=== PATIENT | male | born 1975 | race Caucasian/White ===

== ENCOUNTER 2017-03-02 15:08 | Emergency (ER) | payer OTHER ==
[~2017-03-02] VITALS: Ht 172.7 cm; Wt 98.5 kg
[2017-03-02 15:13] VITALS: Ht 172.7 cm; Wt 98.5 kg
[2017-03-02] MEDS ORDERED: SOD CHLORIDE 0.9% 1,000 ML IV STA (15:52)
[2017-03-02] MEDS ORDERED: METF1000 PO (16:01)
[2017-03-02] MEDS ORDERED: GLIM2TAB PO ×2 (16:02→17:10)
[2017-03-02 16:22] LABS: BASOPHILS % 0.2 % (0.0-2.0); EOSINOPHILS # 0.2 10^3/ul (0.0-0.5); EOSINOPHILS % 1.9 % (0.0-7.0); HEMATOCRIT 43.7 % (42.0-52.0); HEMOGLOBIN 15.1 g/dl (14.0-18.0); LYMPHOCYTES # 2.3 10^3/ul (0.8-2.9); LYMPHOCYTES % 28.2 % (15.0-51.0); MEAN CORPUSCULAR HEMOGLOBIN 29.4 pg (29.0-33.0); MEAN CORPUSCULAR HGB CONC 34.6 g/dl (32.0-37.0); MEAN CORPUSCULAR VOLUME 85.2 fl (82.0-101.0); MEAN PLATELET VOLUME 10.6 fl (7.4-10.4); MONOCYTE # 0.7 10^3/ul (0.3-0.9); MONOCYTES % 8.5 % (0.0-11.0); NEUTROPHILS % 60.8 % (39.0-77.0); PLATELET COUNT 285 10^3/UL (140-415); RED BLOOD COUNT 5.13 10^6/ul (4.70-6.10); RED CELL DISTRIBUTION WIDTH 11.9 % (11.5-14.5); WHITE BLOOD COUNT 8.3 10^3/ul (4.8-10.8)
--- NOTE | 2017-03-02 16:37 | ERD ---
ER Documentation Chief Complaint Date/Time DATE: 03/02/17 TIME: 16:34 Chief Complaint OUT OF DIABETES MEDS. FEELING WEAK X 1 WEEK. BG 323 HPI 41-year-old man history of diabetes mellitus ran out of his medications, he has not been using them for about a month and states he feels weak for the last 3-4 days. He denies chest pain or chest pressure, no fevers or chills, no weight loss, no vomiting or diarrhea ROS All systems reviewed and are negative except as per history of present illness. Medications Home Meds Active Scripts Glimepiride* (Glimepiride*) 2 Mg Tablet, 2 MG PO WITH BREAKFAST, #30 TAB Prov:UZMA CORBIN MD 03/02/17 Metformin* (Glucophage*) 500 Mg Tab, 500 MG PO BID, #60 TAB Prov:UZMA CORBIN MD 03/02/17 Reported Medications Glimepiride* (Glimepiride*) 2 Mg Tablet, 3 MG PO WITH BREAKFAST, TAB PT GETS MEDS IN [place] 03/02/17 Metformin Hcl* (Metformin Hcl*) 1,000 Mg Tablet, 1000 MG PO WITH BREAKFAST DINNE , #30 TAB PT TAKES SIOFOR IN [place] 03/02/17 Allergies Allergies: Coded Allergies: No Known Allergy (Unverified , 03/02/17) PMhx/Soc Diabetes mellitus FmHx Family History: No diabetes Physical Exam Vitals Vital Signs Date Time Temp Pulse Resp B/P Pulse Ox O2 Delivery O2 Flow Rate FiO2 03/02/17 17:20 77 18 118/89 100 Room Air 03/02/17 15:13 98.8 86 20 127/82 98 Physical Exam GENERAL: Well-developed, well-nourished, well-hydrated, in no apparent distress , looks nontoxic in appearance HEENT: Moist mucous membranes, pink conjunctiva, no cervical spine tenderness or step-off deformities, no goiter, no jaundice or icterus, extraocular movements intact without pain. No submandibular induration, and no pharyngeal erythema NEURO: Alert and oriented 3, cranial nerves II through XII intact bilaterally, pupils equal round reactive to light, no focal deficits or facial asymmetry, sensation intact distally Strength 5/5 in upper and lower extremities bilaterally CARDIAC: Regular rate and rhythm, no murmurs rubs or gallops LUNGS: Clear bilaterally no wheezing crackles or stridor ABDOMEN: Soft nontender, no guarding, no rigidity, no rebound, no psoas sign no obturator sign. Normoactive bowel sounds SKIN: Warm and dry to touch, no abrasions, contusions, or hematomas, no lacerations, no ecchymosis, no target lesions, and without ulcers EXTREMITIES: No clubbing cyanosis or edema, calves are bilaterally symmetrical, no Homans sign, no popliteal cord sign. Distal pulses equal and bilateral PSYCH: Normal affect without agitation or irritability Result Diagram: 03/02/17 1600 03/02/17 1600 Results 24 hrs Laboratory Tests Test 03/02/17 15:14 03/02/17 16:00 Bedside Glucose 323mg/dL White Blood Count 8.310^3/ul Red Blood Count 5.1310^6/ul Hemoglobin 15.1g/dl Hematocrit 43.7% Mean Corpuscular Volume 85.2fl Mean Corpuscular Hemoglobin 29.4pg Mean Corpuscular Hemoglobin Concent 34.6g/dl Red Cell Distribution Width 11.9% Platelet Count 47419^3/UL Mean Platelet Volume 10.6fl Neutrophils % 60.8% Lymphocytes % 28.2% Monocytes % 8.5% Eosinophils % 1.9% Basophils % 0.2% Nucleated Red Blood Cells % 0.0/100WBC Neutrophils # (Manual) 5.010^3/ul Lymphocytes # 2.310^3/ul Monocytes # 0.710^3/ul Eosinophils # 0.210^3/ul Basophils # 0.010^3/ul Nucleated Red Blood Cells # 0.010^3/ul Sodium Level 138mmol/L Potassium Level 4.3mmol/L Chloride Level 101mmol/L Carbon Dioxide Level 26mmol/L Anion Gap 15 Blood Urea Nitrogen 16mg/dl Creatinine 1.02mg/dl Glucose Level 323mg/dl Calcium Level 9.2mg/dl Total Bilirubin 0.1mg/dl Direct Bilirubin 0.00mg/dl Indirect Bilirubin 0.1mg/dl Aspartate Amino Transf (AST/SGOT) 16IU/L Alanine Aminotransferase (ALT/SGPT) 29IU/L Alkaline Phosphatase 82IU/L Troponin I < 0.012ng/ml Total Protein 7.3g/dl Albumin 4.2g/dl Globulin 3.10g/dl Albumin/Globulin Ratio 1.35 Lipase 129U/L Current Medications Medications (Trade) Dose Ordered Sig/Xiomara Route PRN Reason Start Time Stop Time Status Last Admin Dose Admin Sodium Chloride (NS) 1,000 ml @ 1,000 mls/hr Q1H STAT IV 03/02/17 15:52 03/02/17 16:51 DC 03/02/17 16:38 Procedures/MDM IV line was established patient was placed on cardiac tech rhythm strip revealed a sinus rhythm at about 80 bpm with upright P and T waves. Patient was afebrile. EKG performed, read by me revealed a normal sinus rhythm 78 bpm, normal axis, narrow QRS complex, no concerning ST elevations or depressions noted. CBC and electrolytes were unremarkable, blood sugar elevated, liver function tests normal, troponin negative. I administered 1 L normal saline intravenously, blood sugar fell. Differential diagnoses considered, included but not limited to acute coronary syndrome, pulmonary embolism, aortic dissection, abdominal aortic aneurysm, sepsis, stroke, meningitis, encephalitis, pneumonia, appendicitis, cholecystitis , bowel obstruction, pyelonephritis, nephrolithiasis, cystitis, as well as metabolic, hematologic, and electrolyte abnormalities. As well as abscess, cellulitis, fractures, and dislocations. Patient feels much better at this time, and vital signs are normal, symptoms have improved. I did give strict instructions to return to the ED if symptoms continue or worsen, patient will otherwise follow-up with primary care physician. Patient understood instructions and agreed to plan. Disclaimer: Inadvertent spelling and grammatical errors are likely due to EHR/ dictation software use and do not reflect on the overall quality of patient care. Also, please note that the electronic time recorded on this note does not necessarily reflect the actual time of the patient encounter. Departure Diagnosis: Primary Impression: Acute weakness Additional Impression: Hyperglycemia Condition: Good UZMA CORBIN MD Mar 02, 2017 16:37
[2017-03-02 16:45] LABS: ALANINE AMINOTRANSFERASE 29 IU/L (13-69); ALBUMIN 4.2 g/dl (3.3-4.9); ALBUMIN/GLOBULIN RATIO 1.35; ALKALINE PHOSPHATASE 82 IU/L (42-121); ANION GAP 15 (8-16); ASPARTATE AMINO TRANSFERASE 16 IU/L (15-46); BILIRUBIN,INDIRECT 0.1 mg/dl (0-1.1); BILIRUBIN,TOTAL 0.1 mg/dl (0.2-1.3); BLOOD UREA NITROGEN 16 mg/dl (7-20); CALCIUM 9.2 mg/dl (8.4-10.2); CARBON DIOXIDE 26 mmol/L (21-31); CHLORIDE 101 mmol/L (97-110); CREATININE 1.02 mg/dl (0.61-1.24); GLUCOSE 323 mg/dl (70-220); POTASSIUM 4.3 mmol/L (3.5-5.1); SODIUM 138 mmol/L (135-144); TOTAL PROTEIN 7.3 g/dl (6.1-8.1)
[2017-03-02 16:55] LABS: TROPONIN-I < 0.012 ng/ml (0.00-0.12)
[2017-03-02] MEDS ORDERED: METF500T4 PO (17:10)
--- NOTE | 2017-03-02 17:14 | RADRPT ---
PROCEDURE: Portable chest x-ray. CLINICAL INDICATION: 41 years of age, male. Cough. Rule out infiltrate. TECHNIQUE: Portable AP view of the chest. COMPARISON: None available. FINDINGS: Cardiomediastinal contours are normal. Lungs are clear. Negative for pleural effusion or pneumothorax. No acute bony abnormality. IMPRESSION: Negative for evidence of acute chest process. Negative for an infiltrate. RPTAT: [facility] Physician Fabiola Date Time Electronically viewed and signed by Celsa Jett Physician on 03/02/2017 17:14 CS/
[2017-03-02 17:20] VITALS: BP 118/89; PULSE 77; RESP 18
== END 2017-03-02 17:20 | disposition home or self-care (01) ==
LOC: E/R 15:08
DX: R53.1 Weakness (principal); E11.65 Type 2 diabetes mellitus with hyperglycemia; Z79.84 Long term (current) use of oral hypoglycemic drugs
CPT/HCPCS: 36415; 71010; 80053; 82962; 83690; 84484; 85025; 93005; J7030; Z7502